=== PATIENT | female | born 1970 | race African-American/Black ===

== ENCOUNTER 2018-12-26 11:01 | Emergency (ER) | payer OTHER ==
[~2018-12-26] VITALS: Ht 167.6 cm; Wt 104.3 kg
[2018-12-26] MEDS ORDERED: LEVO-T25 MCG PO (11:08)
[2018-12-26] MEDS ORDERED: NEURONTIN 300M300 M2 PO (11:09)
[2018-12-26] MEDS ORDERED: METFORMIN HCL500 M3 PO (11:09)
[2018-12-26 12:05] LABS: ABSOLUTE NEUTROPHILS 6.1 thou/uL (1.4-8.2); BASOPHILS 0.5 % (0.0-2.0); EOSINOPHILS 3.7 % (0.0-3.0); HEMATOCRIT 35.9 % (37.0-47.0); HEMOGLOBIN 11.7 gm/dL (12.0-15.0); LYMPHOCYTES 19.9 % (24.0-44.0); MCH 28.2 pg (26.0-34.0); MCHC 32.6 g/dL (28.0-37.0); MCV 86.6 fL (80.0-100.0); MONOCYTES 3.7 % (1.0-8.0); PLATELET COUNT 356 thou/uL (150-400); POLYS 72.2 % (36.0-66.0); RBC 4.15 mil/uL (4.20-5.00); RDW 14.2 % (10.5-14.5); WBC 8.5 thou/uL (4.0-11.0)
[2018-12-26 12:10] LABS: CALCIUM 9.4 mg/dL (8.5-10.1); CREATININE 1.2 mg/dL (0.6-1.0); POTASSIUM 3.2 mmol/L (3.5-5.1)
[2018-12-26 12:17] LABS: ALBUMIN 3.9 g/dL (3.4-5.0); TOTAL BILIRUBIN 0.2 mg/dL (<0.1-1.0); TOTAL PROTEIN 8.9 g/dL (6.4-8.2)
[2018-12-26] MEDS ORDERED: PHENERGAN 25 MG25 M1 PO (13:52)
[2018-12-26 13:55] VITALS: BP 123/82
--- NOTE | 2018-12-27 07:54 | EKG ---
[address] [address] [place] [address] ELECTROCARDIOGRAM REPORT Name: GIANNI GALLEGO Room #: [facility] [id number] Admission: 12/26/18 Attend Phys: Discharge: 12/26/18 Date of : 70 Report #: [id number] THIS REPORT FOR: //name// [facility] ED Test Date: 2018-12-26 Test Time: 11:19:30 Pat Name: GIANNI GALLEGO Department: Room: Gender: F Parliamentary Counsel: MARISA : 1970 Requested By: Belen [place] Order Number: [id number] MD: Ranjan Dang Measurements Intervals [place] Rate: 63 P: 77 FL: 260 QRS: -39 QRSD: 90 T: 118 QT: 512 QTc: 525 Interpretive Statements Sinus rhythm Prolonged FL interval Left axis deviation Low voltage, precordial leads Probable anteroseptal infarct, old Prolonged QT interval Baseline wander in lead(s) V3 No previous ECG available for comparison Electronically Signed On 12-27-2018 7:53:54 CDT by Ranjan Dang [email or web address] <ELECTRONICALLY SIGNED> By: Ranjan Dang MD, [facility] 12/27/18 [id number] Ranjan Dang MD, [facility] /EPI
== END 2018-12-26 13:55 | disposition home or self-care (01) ==
LOC: ER 11:01
PROVIDERS: Nurse Practitioner Family
DX: E86.0 Dehydration (principal); E87.6 Hypokalemia; R11.2 Nausea with vomiting, unspecified; E11.9 Type 2 diabetes mellitus without complications; E03.9 Hypothyroidism, unspecified; F17.210 Nicotine dependence, cigarettes, uncomplicated; Z90.710 Acquired absence of both cervix and uterus; Z91.018 Allergy to other foods; Z88.6 Allergy status to analgesic agent